=== PATIENT | male | born 1960 | race American Indian/Alaskan Native ===

== ENCOUNTER 2018-08-22 19:43 | Emergency (ER) | payer OTHER ==
[2018-08-22 20:04] VITALS: BP 156/91; PULSE 87; TEMP 98.1; O2SAT 97
[2018-08-22] MEDS ORDERED: Dexamethasone 4 mg/1 ml IM STA (20:42)
--- NOTE | 2018-08-22 21:12 | C.PDOC ---
History Of Present Illness 58 y/o male presents to ED with c/o left lower back pain radiating to left thigh for 3 days after wrestling with child. Patient states pain is worse with movement or when walking. 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 Patient denies weakness, numbness, bowel/bladder incontinence, saddle anesthesia, abdominal pain or any other complaints at this time. Time Seen by Provider: 08/22/18 20:14 Chief Complaint (Nursing): Lower Extremity Problem/Injury History Per: Patient History/Exam Limitations: no limitations Onset/Duration Of Symptoms: Days Current Symptoms Are (Timing): Still Present Past Medical History Reviewed: Historical Data, Nursing Documentation, Vital Signs Vital Signs: Last Vital Signs Temp 98.1 F 08/22/18 20:01 Pulse 87 08/22/18 20:01 Resp 14 08/22/18 20:01 BP 156/91 H 08/22/18 20:01 Pulse Ox 97 08/22/18 20:01 - Medical History PMH: Asthma Surgical History: No Surg Hx Family History: States: No Known Family Hx - Social History Hx Alcohol Use: No Hx Substance Use: No - Immunization History Hx Tetanus Toxoid Vaccination: No Hx Influenza Vaccination: No Hx Pneumococcal Vaccination: No Review Of Systems Gastrointestinal: Negative for: Nausea, Vomiting, Abdominal Pain Musculoskeletal: Positive for: Back Pain, Leg Pain Skin: Negative for: Rash Neurological: Negative for: Weakness, Numbness Physical Exam - Physical Exam Appears: Non-toxic, No Acute Distress Skin: Warm, Dry, No Rash Head: Atraumatic, Normacephalic Eye(s): bilateral: Normal Inspection Oral Mucosa: Moist Neck: Normal ROM, Supple Chest: Symmetrical Cardiovascular: Rhythm Regular Respiratory: Normal Breath Sounds, No Rales, No Rhonchi, No Wheezing Gastrointestinal/Abdominal: Soft, No Tenderness, No Guarding, No Rebound Back: No CVA Tenderness, Other (left paralumbar tenderness) Neurological/Psych: Oriented x3, Normal Speech, Normal Cognition, Normal Motor, Normal Sensation ED Course And Treatment O2 Sat by Pulse Oximetry: 97 (RA) Pulse Ox Interpretation: Normal Disposition - Disposition Referrals: Shaq Mann MD [Non-Staff] - Disposition: HOME/ ROUTINE Disposition Time: 22:06 Condition: GOOD Additional Instructions: Follow up with the medical doctor within 1-2 days. Return if worsened. Prescriptions: diaZEpam [Valium] 5 mg PO TID #21 tab Lidocaine 5% [Lidoderm] 1 each TP DAILY #10 patch Naproxen [Naprosyn] 500 mg PO BID #20 tab Instructions: Low Back Pain in Adults Forms: [facility] (Swazi), Work Excuse - Clinical Impression Clinical Impression: Lumbar radiculopathy - PA / GENER[employer]NA[employer] / Resident Statement MD/DO has reviewed & agrees with the documentation as recorded. - Scribe Statement The provider has reviewed the documentation as recorded by the Chayoibstan Morales All medical record entries made by the Lindsay were at my direction and personally dictated by me. I have reviewed the chart and agree that the record accurately reflects my personal performance of the history, physical exam, medical decision making, and the department course for this patient. I have also personally directed, reviewed, and agree with the discharge instructions and disposition.
[2018-08-22] MEDS ORDERED: Lidocaine 5% Patch TD STA (22:19)
[2018-08-22] MEDS ORDERED: Lidocaine 5% Patch TD ONE (22:23)
[2018-08-22 22:45] VITALS: RESP 20
--- NOTE | 2018-08-23 08:54 | RAD ---
Date of service: 08/22/2018 PROCEDURE: Radiographs of the Lumbar Spine. HISTORY: left low back pain. COMPARISON: No prior. FINDINGS: BONES: Normal alignment. No listhesis. No fracture. Diffuse endplate spondylosis DISC SPACES: Most [id number] OTHER FINDINGS: L4-5 and L5-S1 facet hypertrophic arthrosis. 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 Sclerotic changes here noted. Bilateral hip mild arthrosis. Bilateral hemipelvic phleboliths the largest on the left Moderate stool retention IMPRESSION: Lumbar spondylosis and mild degenerative disc disease. 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
== END 2018-08-22 22:44 | disposition home or self-care (01) ==
LOC: C.ER 19:43
DX: M54.16 Radiculopathy, lumbar region (principal)
CPT/HCPCS: 72100; 96372; 99284; J1100; J1885

== ENCOUNTER 2018-08-26 11:57 | Emergency (ER) | payer MEDICAID ==
[2018-08-26 12:08] VITALS: TEMP 98.1; O2SAT 100
--- NOTE | 2018-08-26 13:49 | C.PDOC ---
History Of Present Illness 58 y/o male, who was seen here 4 days ago for lower left back pain radiating to left lateral thigh after playing with child, presents to ER with similar symptoms of decreased sensation in left lateral thigh. Patient was given prescription for naproxen, valium and Lidoderm patches from the previous visit. Patient reports compliance with medications but states it still hurts. Denies bladder or bowel dysfunction, no saddle anesthesia, or weakness. Patient was ambulatory in ED with no difficulty. Time Seen by Provider: 08/26/18 12:25 Chief Complaint (Nursing): Lower Extremity Problem/Injury History Per: Patient History/Exam Limitations: no limitations Onset/Duration Of Symptoms: Days Current Symptoms Are (Timing): Still Present Past Medical History Reviewed: Historical Data, Nursing Documentation, Vital Signs Vital Signs: Last Vital Signs Temp 98.1 F 08/26/18 12:05 Pulse 105 H 08/26/18 12:05 Resp 18 08/26/18 12:05 BP 175/102 H 08/26/18 12:05 Pulse Ox 100 08/26/18 12:05 - Medical History PMH: Asthma Family History: States: No Known Family Hx - Social History Hx Alcohol Use: No Hx Substance Use: No - Immunization History Hx Tetanus Toxoid Vaccination: No Hx Influenza Vaccination: No Hx Pneumococcal Vaccination: No Review Of Systems Gastrointestinal: Negative for: Abdominal Pain, Diarrhea, Constipation Genitourinary: Negative for: Incontinence Musculoskeletal: Positive for: Leg Pain (Left lateral thigh) Neurological: Negative for: Weakness, Numbness Physical Exam - Physical Exam Appears: Non-toxic, No Acute Distress Skin: Warm, Dry Head: Atraumatic, Normacephalic Eye(s): bilateral: Normal Inspection Oral Mucosa: Moist Back: No Vertebral Tenderness, Other (Reproducible back pain) Pulses: Left Dorsalis Pedis: Normal, Right Dorsalis Pedis: Normal Neurological/Psych: Oriented x3, Normal Speech, No Normal Sensation (subjective decreased sensation to left lateral thigh) Gait: Steady ED Course And Treatment O2 Sat by Pulse Oximetry: 100 (RA) Pulse Ox Interpretation: Normal Medical Decision Making Medical Decision Making: Impression: Back pain Plan: --Tylenol Patient request doctors note for work. pt with left back pain radiating to thigh with some decreased sensation to thigh. pt sts he is taking medications prescribed from ed 3 days ago and not gone. discussed with pt that may take time to resolves, needs to continue meds and f/u pmd for pt. Tylenol given. Disposition Counseled Patient/Family Regarding: Diagnosis, Need For Followup, Rx Given - Disposition Referrals: [facility] [Outside] Disposition: HOME/ ROUTINE Disposition Time: 13:49 Condition: GOOD Additional Instructions: Add Tylenol to other pain medications prescribed at last ED visit. Cold compresses several times a day to painful area. Recommend follow up with medical clinic; recommend referral to physical therapy. Prescriptions: Acetaminophen [Tylenol 325mg tab] 650 mg PO Q4 #50 tab Instructions: Radiculopathy (DC) Forms: General Discharge Instructions, [facility] (Maltese), Work Excuse - Clinical Impression Clinical Impression: Lumbar radiculopathy - PA / GENERAL CLAIMS AGENT / Resident Statement MD/DO has reviewed & agrees with the documentation as recorded. - Scribe Statement The provider has reviewed the documentation as recorded by the Scribe Jennifer Jones All medical record entries made by the Scribe were at my direction and personally dictated by me. I have reviewed the chart and agree that the record accurately reflects my personal performance of the history, physical exam, medical decision making, and the department course for this patient. I have also personally directed, reviewed, and agree with the discharge instructions and disposition.
[2018-08-26 14:10] VITALS: BP 161/90; PULSE 82; RESP 16
== END 2018-08-26 13:58 | disposition home or self-care (01) ==
LOC: C.ER 11:57
DX: M54.16 Radiculopathy, lumbar region (principal)